=== PATIENT | female | born 1990 | race Two or more races ===

== ENCOUNTER 2022-07-09 04:11 | Inpatient (IN) | payer OTHER ==
[~2022-07-09] VITALS: Ht 152.4 cm; Wt 2.7 kg
[2022-07-09] MEDS ORDERED: PRENATAL TABLE1 EAC1 PO (04:44)
[2022-07-09] MEDS ORDERED: NIFEDIPINE20 MG PO ×2 (04:44→04:45)
[2022-07-09] MEDS ORDERED: AMPICILLIN TRI500 MG PO (04:46)
== END 2022-07-11 14:28 | disposition home or self-care (01) | DRG 785 ==
LOC: OB/GYN 04:11 → LDR 04:11 → OB/GYN 09:57
PROVIDERS: ADMIT Specialist; ATTEND Specialist
PROC: 0UB70ZZ Excision of Bilateral Fallopian Tubes, Open Approach (ICD-10-PCS; 2022-07-09)
PROC: 4A1HXCZ Monitoring of Products of Conception, Cardiac Rate, External Approach (ICD-10-PCS; 2022-07-09)
PROC: 10D00Z1 Extraction of Products of Conception, Low, Open Approach (ICD-10-PCS; principal; 2022-07-09 07:30)
DX: O34.211 Maternal care for low transverse scar from previous cesarean delivery (principal); Z3A.38 38 weeks gestation of pregnancy; Z37.0 Single live birth; Z20.822 Contact with and (suspected) exposure to COVID-19; Z30.2 Encounter for sterilization